=== PATIENT | female | born 1965 | race Caucasian/White ===

== ENCOUNTER 2017-11-02 09:13 | Emergency (ER) | payer SELFPAY | END 2017-11-02 11:30 | disposition home or self-care (01) | LOC: D.ER 09:13 | DX: S50.02XA Contusion of left elbow, initial encounter (principal); W19.XXXA Unspecified fall, initial encounter; Y93.89 Activity, other specified; Y92.89 Other specified places as the place of occurrence of the external cause; F17.200 Nicotine dependence, unspecified, uncomplicated ==

== ENCOUNTER → 2018-12-16 12:39 | Outpatient (CLI) | payer OTHER | END | disposition home or self-care (01) | LOC: D.RT 12:39 | PROVIDERS: ATTEND Pediatrics | DX: J44.9 Chronic obstructive pulmonary disease, unspecified (principal) ==